=== PATIENT | male | born 1970 | race Caucasian/White ===

== ENCOUNTER 2018-02-05 13:04 | Emergency (ER) | payer OTHER ==
[~2018-02-05] VITALS: Ht 175.3 cm; Wt 79.4 kg
--- NOTE | 2018-02-05 13:43 | ED Cardiac General ---
History of Present Illness General Chief Complaint: Chest Pain Stated Complaint: CHEST PAIN Source: patient Exam Limitations: no limitations History of Present Illness Date Seen by Provider: Feb 05, 2018 Time Seen by Provider: 13:39 Initial Comments This 39-year-old white male presents with a 10 minute episode of pressure-type chest pain radiating to the left arm that occurred while he was sitting on a couch last night. There was no associated vomiting, sweating, significant shortness of breath, or other radiation of his chest pain. The patient denies associated family history of significant heart disease, smoking drinking or drugs, associated fever or productive cough. Patient is under significant stress at work. Patient states that he is an anxious person. Allergies and Home Medications Allergies Coded Allergies: No Known Drug Allergies (Unverified , 02/05/18) Patient Home Medication List Home Medication List Reviewed: Yes Review of Systems Constitutional: No chills, No fever EENTM: No Blurred Vision Respiratory: Denies Cough, Denies Shortness of Air Cardiovascular: See HPI, Chest Pain; Denies Palpitations, Denies Syncope Gastrointestinal: Denies Abdominal Pain, Denies Diarrhea, Denies Nausea Genitourinary: No Symptoms Reported; Denies Burning Musculoskeletal: no symptoms reported; No back pain Skin: No rash Psychiatric/Neurological: Anxiety Endocrine: No Symptoms Reported Hematologic/Lymphatic: No Symptoms Reported Past Mqgilgw-Sdxbhk-Bvrdqw Hx Past Med/Social Hx: Reviewed Nursing Past Med/Soc Hx Patient Social History Alcohol Use: Denies Use Recreational Drug Use: No Smoking Status: Never a Smoker Past Medical History Surgeries: No Respiratory: No Cardiac: No Neurological: No Genitourinary: No Gastrointestinal: No Endocrine: No HEENT: No Cancer: No Psychosocial: No Integumentary: No Family Medical History Reviewed Nursing Family Hx Physical Exam Vital Signs Vital Signs - First Documented 02/05/18 13:07 Temp 97.9 Pulse 100 Resp 18 B/P (MAP) 144/99 (114) Pulse Ox 98 O2 Delivery Room Air Capillary Refill : Height, Weight, BMI Height: '" Weight: lbs. oz. kg; BMI Method: General Appearance: No Apparent Distress, WD/WN, Anxious HEENT: Normal ENT Inspection Neck: Normal Inspection Respiratory: Lungs Clear Cardiovascular: Regular Rate, Rhythm Gastrointestinal: Normal Bowel Sounds Extremity: Normal Capillary Refill, Normal Inspection, Normal Range of Motion Neurologic/Psychiatric: Oriented x3, No Motor/Sensory Deficits, Normal Mood/ Affect Skin: Normal Color, Warm/Dry Progress/Results/Core Measures Results/Orders Lab Results Laboratory Tests Test 02/05/18 13:14 Range/Units White Blood Count 10.1 4.3-11.0 10^3/uL Red Blood Count 5.34 4.35-5.85 10^6/uL Hemoglobin 15.9 13.3-17.7 G/DL Hematocrit 45 40-54 % Mean Corpuscular Volume 83 80-99 FL Mean Corpuscular Hemoglobin 30 25-34 PG Mean Corpuscular Hemoglobin Concent 36 32-36 G/DL Red Cell Distribution Width 12.9 10.0-14.5 % Platelet Count 300 130-400 10^3/uL Mean Platelet Volume 9.3 7.4-10.4 FL Neutrophils (%) (Auto) 65 42-75 % Lymphocytes (%) (Auto) 22 12-44 % Monocytes (%) (Auto) 11 0-12 % Eosinophils (%) (Auto) 2 0-10 % Basophils (%) (Auto) 0 0-10 % Neutrophils # (Auto) 6.6 1.8-7.8 X 10^3 Lymphocytes # (Auto) 2.2 1.0-4.0 X 10^3 Monocytes # (Auto) 1.1 H 0.0-1.0 X 10^3 Eosinophils # (Auto) 0.2 0.0-0.3 10^3/uL Basophils # (Auto) 0.0 0.0-0.1 10^3/uL Prothrombin Time 13.8 12.2-14.7 SEC INR Comment 1.1 0.8-1.4 Activated Partial Thromboplast Time 32 24-35 SEC Sodium Level 138 135-145 MMOL/L Potassium Level 3.7 3.6-5.0 MMOL/L Chloride Level 105 98-107 MMOL/L Carbon Dioxide Level 24 21-32 MMOL/L Anion Gap 9 5-14 MMOL/L Blood Urea Nitrogen 13 7-18 MG/DL Creatinine 0.85 0.60-1.30 MG/DL Estimat Glomerular Filtration Rate > 60 BUN/Creatinine Ratio 15 Glucose Level 116 H 70-105 MG/DL Calcium Level 9.6 8.5-10.1 MG/DL Magnesium Level 2.4 1.8-2.4 MG/DL Total Bilirubin 0.9 0.1-1.0 MG/DL Aspartate Amino Transf (AST/SGOT) 16 5-34 U/L Alanine Aminotransferase (ALT/SGPT) 17 0-55 U/L Alkaline Phosphatase 74 40-136 U/L Myoglobin 36.5 10.0-92.0 NG/ML Troponin I < 0.30 <0.30 NG/ML Total Protein 7.7 6.4-8.2 GM/DL Albumin 4.5 3.2-4.5 GM/DL My Orders Orders - ALTAGRACIA HOANG MD Cbc With Automated Diff (02/05/18 13:37) Magnesium (02/05/18 13:37) Chest 1 View, Ap/Pa Only (02/05/18 13:37) Ekg Tracing (02/05/18 13:37) Cardiac Profile 1 (02/05/18 13:37) Comprehensive Metabolic Panel (02/05/18 13:37) Myoglobin Serum (02/05/18 13:37) Protime With Inr (02/05/18 13:37) Partial Thromboplastin Time (02/05/18 13:37) O2 (02/05/18 13:37) Monitor-Rhythm Ecg Trace Only (02/05/18 13:37) Lipid Panel (02/06/18 06:00) Saline Lock/Iv-Start (02/05/18 13:37) Vital Signs/I&O 02/05/18 02/05/18 13:07 13:53 Temp 97.9 Pulse 100 87 Resp 18 18 B/P (MAP) 144/99 (114) 121/81 (94) Pulse Ox 98 94 O2 Delivery Room Air Room Air Progress Progress Note : Time: 15:25 Progress Note The patient's EKG demonstrated a borderline sinus tachycardia. No acute current of injury was appreciated. The remainder the patient's evaluation including troponin was unremarkable. I reassured the patient. I recommended that he follow up with Dr. Jo for further evaluation. He was asked to return of any problems or questions. Departure Impression Primary Impression: Chest pain Qualified Codes: R07.2 - Precordial pain Disposition: 01 HOME, SELF-CARE Condition: Unchanged Departure-Patient Inst. Decision time for Depature: 15:27 Referrals: DANIELA JO MD FACP FACC [facility] Patient Instructions: Chest Pain (DC) Add. Discharge Instructions: Follow-up with Dr. Jo. Return if any problems or questions. All discharge instructions reviewed with patient and/or family. Voiced understanding. ALTAGRACIA HOANG MD Feb 05, 2018 13:43
[2018-02-05 13:47] LABS: BASOPHILS % (AUTO) 0 % (0-10); EOSINOPHILS # (AUTO) 0.2 10^3/uL (0.0-0.3); EOSINOPHILS % (AUTO) 2 % (0-10); HEMATOCRIT 45 % (40-54); HEMOGLOBIN 15.9 G/DL (13.3-17.7); LYMPHOCYTES # (AUTO) 2.2 X 10^3 (1.0-4.0); LYMPHOCYTES % (AUTO) 22 % (12-44); MEAN CORPUSCULAR HEMOGLOBIN 30 PG (25-34); MEAN CORPUSCULAR HGB CONC 36 G/DL (32-36); MEAN CORPUSCULAR VOLUME 83 FL (80-99); MEAN PLATELET VOLUME 9.3 FL (7.4-10.4); MONOCYTES # (AUTO) 1.1 X 10^3 (0.0-1.0); MONOCYTES % (AUTO) 11 % (0-12); NEUTROPHILS # (AUTO) 6.6 X 10^3 (1.8-7.8); NEUTROPHILS % (AUTO) 65 % (42-75); PLATELET COUNT 300 10^3/uL (130-400); RED BLOOD COUNT 5.34 10^6/uL (4.35-5.85); RED CELL DISTRIBUTION WIDTH 12.9 % (10.0-14.5); WHITE BLOOD COUNT 10.1 10^3/uL (4.3-11.0)
[2018-02-05 13:53] VITALS: BP 121/81
[2018-02-05 13:56] LABS: INR 1.1 (0.8-1.4); PROTHROMBIN TIME PATIENT 13.8 SEC (12.2-14.7)
[2018-02-05 13:59] LABS: ALANINE AMINOTRANSFERASE 17 U/L (0-55); ALBUMIN 4.5 GM/DL (3.2-4.5); ALKALINE PHOSPHATASE 74 U/L (40-136); BILIRUBIN,TOTAL 0.9 MG/DL (0.1-1.0); BUN/CREATININE RATIO 15; CALCIUM 9.6 MG/DL (8.5-10.1); CARBON DIOXIDE 24 MMOL/L (21-32); CHLORIDE 105 MMOL/L (98-107); CREATININE SERUM 0.85 MG/DL (0.60-1.30); GFR ESTIMATED > 60; GLUCOSE 116 MG/DL (70-105); MAGNESIUM 2.4 MG/DL (1.8-2.4); POTASSIUM 3.7 MMOL/L (3.6-5.0); SODIUM 138 MMOL/L (135-145); TOTAL PROTEIN 7.7 GM/DL (6.4-8.2)
[2018-02-05 14:06] LABS: MYOGLOBIN SERUM 36.5 NG/ML (10.0-92.0)
--- NOTE | 2018-02-05 14:20 | Diagnostic Imaging Report ---
INDICATION: Chest pain. TIME OF EXAM: 1:58 PM No prior studies are available for comparison. FINDINGS: The heart size is normal. The pulmonary vascularity is unremarkable. The lungs are clear. No infiltrate, effusion or pneumothorax is detected. IMPRESSION: No acute cardiopulmonary process is detected. Dictated by: Dictated on workstation # [id number]
[2018-02-05 15:40] VITALS: BP 123/93
== END 2018-02-05 15:33 | disposition home or self-care (01) ==
LOC: EDUNIT# 13:04 → ER 13:06
DX: R07.89 Other chest pain (principal)
CPT/HCPCS: 36415; 71045; 80053; 83735; 83874; 84484; 85025; 85610; 85730; 93005; 93041